=== PATIENT | female | born 1950 | race Caucasian/White ===

== ENCOUNTER → 2017-02-10 | Outpatient (CLI) | payer MEDICARE, BC ==
[~2017-02-10] MED LIST: ANASTROZOLE1 MG PO; DIFLUCAN200 MG PO; LEVOTHYROXINE50 MCG PO; NO MEDICATIONS; NORCO 7.5-3251 EACH PO; OMEPRAZOLE40 M1 PO; PANTOPRAZOLE SO40 MG PO; SYNTHROID PO
--- NOTE | ~2017-02-10 | CT57 ---
[facility] A Service of [facility] & [facility] RADIOLOGY TEXT RESULTS PATIENT: SHREYAS CHAUDHARI [facility] UNIT #: [id number] AGE: [address]: Nita Hung MD SEX: F ORDER DR: [id number] [facility] [address] [place], [place] [address] [id number] O MR#: [id number] [facility] #: [id number] NAME: SHREYAS CHAUDHARI : 1950 SEX: F STUDY DATE/TIME: 02/10/2017 12:02 UNIT: [facility] ROOM: STUDY DESCRIPTION: CT Chest Wo Cont Attending Physician: Nita Hung M.D. Referring Physician: Nita Hung M.D. Ordering Physician: Nita Hung M.D. Primary Care Physician: Pradip Kamara M.D. MEDICAL IMAGING REPORT This report is preliminary unless electronic signature is present EXAM Chest CT no contrast 02/10/1970 INDICATIONS Breast cancer on the right, cough, currently on chemotherapy. Concern for metastatic disease. Observation for suspected malignant neoplasm and active malignancy. Malignancy of the inner quadrant right breast. TECHNIQUE Noncontrast chest CT was performed and compared with 10/13/2016. This CT exam was performed with one or more of the following radiation dose reduction techniques: automatic control, adjustment of mA and/or kV according to patient size, and iterative reconstruction. FINDINGS CT CHEST: Lungs are essentially clear. There is no pleural effusion or pneumonia. There is a 7 mm noncalcified nodule in the upper lobe on the left that is unchanged. No new pulmonary nodules identified. Included thyroid unremarkable. MediPort catheter from a left sided approach present. The proximal esophagus is prominent but unchanged. There is no pericardial effusion or new mediastinal adenopathy. Tiny reactive-appearing mediastinal nodes are present. Aorta demonstrates no aneurysm. No axillary adenopathy on the left. On the right, there has been interval decrease in size of a dominant axillary node, now measuring 2.1 x 1.4 cm previously 4.0 x 3 cm. Included upper abdomen demonstrates a stable low-attenuation lesion within the spleen measuring about 2 cm. Included upper abdomen otherwise unremarkable. Osseous structures demonstrate degenerative change. No new suspicious bone lesion. IMPRESSION [facility] A Service of [facility] RADIOLOGY TEXT RESULTS PATIENT: SHREYAS CHAUDHARI LOCATION: [facility] : 48 UNIT #: [id number] AGE: [address]: Nita Hung MD SEX: F ORDER DR: 1. Stable 7 mm noncalcified nodule in the upper lobe on the left. Continued attention on follow up studies is recommended. No new pulmonary nodules identified. 2. Interval decrease in size of a right axillary node suggestive of response to therapy. 3. Stable cyst within the spleen. 4. Prominence of the cervical esophagus actually represents an esophageal diverticulum better demonstrated on the sagittal and coronal reformats. This is unchanged. Dictated by... David Farmer M.D. THIS IS AN ELECTRONICALLY VERIFIED REPORT David Farmer M.D. at 02/10/2017 5:13 PM ASIM/bruce TD: 02/10/2017 15:37 JOB #: [id number] MEDICAL IMAGING REPORT Page 1 of 1 COPY
== END | disposition home or self-care (01) ==
LOC: CCAT 10:46
DX: C50.311 Malignant neoplasm of lower-inner quadrant of right female breast (principal); Z43.9 Encounter for attention to unspecified artificial opening; R91.1 Solitary pulmonary nodule; D73.4 Cyst of spleen
CPT/HCPCS: 71250; 93306

== ENCOUNTER → 2017-06-17 | Outpatient (CLI) | payer MEDICARE, BC ==
--- NOTE | ~2017-06-17 | EKG ---
PATIENT: SHREYAS CHAUDHARI UNIT #: [id number] Ventricular Rate: 100 BPM Atrial Rate: 100 BPM P-R Interval: 148 ms QRS Duration: 80 ms Q-T Interval: 362 ms QTC Calculation(Bezet): 466 ms P [place]: 87 degrees Calculated R [place]: 67 degrees Calculated T [place]: 82 degrees Diagnosis Line: Normal sinus rhythm Diagnosis Line: Normal ECG Diagnosis Line: When compared with ECG of 05-NOV-2016 14:26, Diagnosis Line: Vent. rate has increased BY 35 BPM Diagnosis Line: Confirmed by FACUNDO VERGARA MD ([id number]) on 06/17/2017 Diagnosis Line: 5:04:33 PM INTERPRETING MD: URSULA WITT
[2017-06-17 14:49] LABS: HEMATOCRIT 33.1 % (35.0-45.0); MEAN CELL VOLUME 95.6 FL (83-96); MEAN CORPUSCULAR HEMOGLOBIN 31.7 PG (28-34); MEAN CORPUSCULAR HGB CONC 33.2 g/dL (30-36); MEAN PLATELET VOLUME 6.3 FL (6.5-11.5); RED BLOOD COUNT 3.46 X10e (3.90-5.30); RED CELL DISTRIBUTION WIDTH 16.7 % (11.0-15.5); WHITE BLOOD COUNT 13.5 X10e3 (4.0-10.5)
[2017-06-17 15:22] LABS: ALBUMIN SERUM 3.2 g/dL (3.5-5.0); BILIRUBIN,TOTAL 0.8 mg/dL (0.2-2.0); BUN/CREATININE RATIO 7.77; CALCIUM SERUM 8.8 mg/dL (8.4-10.2); CREATININE SERUM 0.9 mg/dL (0.6-1.4); GLOM FILT RATE Estimated 65.7 mL/min (>60); POTASSIUM 3.7 mmol/L (3.5-5.1); PROTEIN TOTAL SERUM 6.1 g/dL (6.0-8.3)
== END | disposition home or self-care (01) ==
LOC: CAMB 06-16 14:00
PROVIDERS: Specialist
DX: Z01.818 Encounter for other preprocedural examination (principal); C50.911 Malignant neoplasm of unspecified site of right female breast
CPT/HCPCS: 36415; 80053; 85027; 93005

== ENCOUNTER → 2017-06-28 | Outpatient (CLI) | payer MEDICARE, BC ==
--- NOTE | ~2017-06-28 | CR63 ---
[facility] A Service of [facility] & [facility] RADIOLOGY TEXT RESULTS PATIENT: SHREYAS CHAUDHARI LOCATION: [facility] : 46 UNIT #: [id number] AGE: [address]: Pradip Hodges MD SEX: F ORDER DR: [id number] [facility] [address] [place], [place] [address] [id number] O MR#: [id number] Acc #: [id number] NAME: SHREYAS CHAUDHARI : 1950 SEX: F STUDY DATE/TIME: 06/28/2017 16:03 UNIT: [facility] ROOM: STUDY DESCRIPTION: CR Chest 2 View Attending Physician: Pradip Hodges M.D. Referring Physician: Pradip Hodges M.D. Ordering Physician: Pradip Hodges M.D. Primary Care Physician: Pradip Kamara M.D. MEDICAL IMAGING REPORT This report is preliminary unless electronic signature is present EXAM Chest PA and lateral 06/28/2017 HISTORY Bilateral chest and rib pain, shortness of breath on exertion for 2 weeks status post fall. History of breast carcinoma. Benign essential hypertension. FINDINGS The cardiac and mediastinal structures are stable compared with 11/09/2016. Left subclavian approach MediPort catheter remains in place with the tip in the superior vena cava. There is no pneumothorax. The lungs are clear. There are no pleural effusions. IMPRESSION No active pulmonary disease. Dictated by... David Danielson M.D. THIS IS AN ELECTRONICALLY VERIFIED REPORT David Danielson M.D. at 06/29/2017 7:47 AM HERMAN/marcelo TD: 06/28/2017 21:04 JOB #: [id number] MEDICAL IMAGING REPORT Page 1 of 1 COPY
== END | disposition home or self-care (01) ==
LOC: CRAD 15:44
DX: R07.81 Pleurodynia (principal)
CPT/HCPCS: 71020

== ENCOUNTER 2017-06-30 09:18 | Observation (INO) | payer MEDICARE, BC ==
[~2017-06-30] VITALS: Ht 166.4 cm; Wt 52.0 kg
--- NOTE | ~2017-06-30 | OR ---
Unit #: [id number] #: [id number] Patient: SHREYAS HOOD [id number] [facility] [address] [place], [place] [address] [id number] I MR#: [id number] NAME: SHREYAS HOOD ROOM: [facility] Date of Procedure: 06/30/2017 Admission Date: 06/30/2017 Surgeon: Pradip Hodges M.D. : 1950 Attending Physician: Pradip Hodges M.D. Primary Care Physician: Pradip Kamara M.D. PROCEDURE OPERATIVE NOTE PREOPERATIVE DIAGNOSIS Advanced stage adenocarcinoma of the right breast. POSTOPERATIVE DIAGNOSIS Advanced stage adenocarcinoma of the right breast. PROCEDURE PERFORMED Right modified radical mastectomy. SURGEON Carroll. ACID WASH OPERATOR Casey. ANESTHESIA General endotracheal anesthesia. ESTIMATED BLOOD LOSS 40 mL. DRAINS Devan-Garcia drain placement x2. INDICATIONS Ms. Hood is a 66-year-old female who presented with a large breast mass and evidence of metastatic disease. She was sent to medical oncology who has given her preoperative chemoradiation therapy and she is now sent for salvage mastectomy. Patient will require right modified radical mastectomy. Patient did not want to consider reconstruction. PROCEDURE Patient admitted to [facility], positively identified, transported to the operating room and, after induction of general endotracheal anesthesia, SCDs were placed and she received antibiotics per SCIP protocol. After being appropriately positioned and prepped and draped in usual sterile fashion, the breast tissue was palpated and I estimated where the incision should be made to have a nice closure of the chest wall. A modified Carroll mastectomy incision was then made. Superior and inferior skin flaps were created down to the level of the pectoralis fascia and then the breast tissue was dissected off the pectoralis fascia in a medial to lateral direction. The breast was sent Unit #: [id number] #: [id number] Patient: SHREYAS HOOD as a separate specimen. I then opened the clavipectoral fascia and did a level 1 and 2 axillary dissection. The thoracodorsal neurovascular bundle and the long thoracic nerve were both identified and preserved. The axillary contents were sent as a separate specimen. I irrigated copiously and there was good hemostasis. Through separate stab incisions, two Devan-Garcia drains were placed, one across the chest wall and one into the axilla. The drains were secured with 2-0 silk suture and placed to bulb suction. The skin was closed with sterile skin evon. A dry sterile dressing was placed. Sponge, instrument, and needle counts were correct x3. Patient tolerated procedure well and was transported to recovery in stable condition. Findings and postoperative instructions were discussed with her family. Dictated by... Viktoria Lama/matthew TD: 07/01/2017 10:03 JOB #: [id number] PROCEDURE OPERATIVE NOTE Page 1 of 1 X Pradip Hodges MD X PROCEDURE OPERATIVE NOTE
--- NOTE | ~2017-06-30 | DS ---
Unit #: [id number] #: [id number] Patient: SHREYAS HOOD [id number] [address] [place], [place] [address] [id number] I MR#: [id number] NAME: SHREYAS HOOD ROOM: [facility] Age: 66 Sex: F Admission Date: 06/30/2017 : 1950 Discharge Date: 07/01/2017 Attending Physician: Pradip Hodges M.D. Primary Care Physician: Pradip Kamara M.D. DISCHARGE SUMMARY HISTORY AND HOSPITAL COURSE Ms. Hood is a 66-year-old female who has advanced stage breast cancer and had preoperative chemotherapy and radiation therapy. She has completed that and her medical oncologist sent her for a right sided modified radical mastectomy. She was brought in the morning of surgery and she underwent her procedure and it was uncomplicated. She is admitted for observation and over the evening she was afebrile with stable vital signs. She was tolerating her diet without any nausea or vomiting. She reports no discomfort. Devan-Garcia drains were putting out acceptable amounts of serosanguineous drainage. Her dressing was dry. Her skin flaps are viable. Her pathology is still pending. Today she will be discharged home in stable condition with instruction to undergo diet and activity as tolerated and keep her Devan-Garcia drains to bulb suction. She is to call the office and follow up next Tuesday for drain removal. At that time, we will discuss her path report. Prescription for hydrocodone was left for pain control. Med reconciliation sheet was completed. Dictated by... Pradip Hodges M.D. ANAYA/eleno TD: 07/04/2017 13:10 JOB #: [id number] DISCHARGE SUMMARY Page 1 of 1 X Pradip Hodges MD X DISCHARGE SUMMARY
[~2017-06-30 09:18] MED LIST changes: -LEVOTHYROXINE50 MCG PO; -NORCO 7.5-3251 EACH PO
[2017-06-30] MEDS ORDERED: DIFLUCAN200 MG PO (10:02)
[2017-06-30 10:35] LABS: BASOPHIL# 0.1 X10e3 (0-0.3); BASOPHIL% 0.9 % (0-2.5); EOSINOPHIL# 0.1 X10e3 (0-0.7); EOSINOPHIL% 1.9 % (0.0-7.0); HEMATOCRIT 29.9 % (35.0-45.0); HEMOGLOBIN 10.1 gm/dL (12.0-16.0); LYMPHOCYTE# 1.3 X10e3 (1.0-3.5); LYMPHOCYTE% 16.3 % (17.0-45.0); MEAN CELL VOLUME 93.8 FL (83-96); MEAN CORPUSCULAR HEMOGLOBIN 31.8 PG (28-34); MEAN CORPUSCULAR HGB CONC 33.9 g/dL (30-36); MONOCYTE# 0.7 X10e3 (0-1.0); MONOCYTE% 8.8 % (3.0-12.0); NEUTROPHIL# 5.7 X10e3 (1.5-7.1); NEUTROPHIL% 72.1 % (40-75); PLATELET COUNT 471 X10e3 (140-420); RED BLOOD COUNT 3.18 X10e (3.90-5.30); RED CELL DISTRIBUTION WIDTH 16.8 % (11.0-15.5); WHITE BLOOD COUNT 7.9 X10e3 (4.0-10.5)
[2017-06-30 10:39] LABS: DIFF IND NO
[2017-06-30] MEDS ORDERED: LEVOTHYROXINE50 MCG PO (14:33)
[2017-07-01] MEDS ORDERED: NORCO 7.5-3251 EACH PO (07:41)
== END 2017-07-01 11:44 | disposition home or self-care (01) ==
LOC: CSUR 09:18 → C4C 10:49 → CSUR 12:39 → C4C 07-01 11:44
PROVIDERS: Specialist
DX: C50.511 Malignant neoplasm of lower-outer quadrant of right female breast (principal); K21.9 Gastro-esophageal reflux disease without esophagitis; E03.9 Hypothyroidism, unspecified; F17.210 Nicotine dependence, cigarettes, uncomplicated; Z17.0 Estrogen receptor positive status [ER+]; Z79.899 Other long term (current) drug therapy; Z90.710 Acquired absence of both cervix and uterus; Z90.49 Acquired absence of other specified parts of digestive tract; Z98.890 Other specified postprocedural states
CPT/HCPCS: 85025; 88309; G0378; J0330; J0360; J0690; J1100; J1642; J1885; J2405; J2765; J3010